=== PATIENT | male | born 1990 | race Caucasian/White ===

== ENCOUNTER 2017-03-02 12:08 | Emergency (ER) | payer BC ==
[2017-03-02 12:25] VITALS: BP 132/73
[2017-03-02] MEDS ORDERED: Meclizine TAB* 12.5 MG PO ONE (12:50)
--- NOTE | 2017-03-02 12:54 | UC ---
Ear Complaint HPI - HPI Summary HPI Summary: 2 weeks total of sinus congestion then ear pain and pressure---awoke this morning with vertigo. no fevers,no other samaniego ill some nausea---sx worsening with movement - History of Current Complaint Chief Complaint: UCGeneralIllness Stated Complaint: SINUS EARS DIZZY VOMITING Time Seen by Provider: 03/02/17 12:30 Hx Obtained From: Patient Onset/Duration: Sudden Onset, Lasting Hours, Still Present Severity Initially: Moderate Severity Currently: Moderate Pain Intensity: 5 Pain Scale Used: 0-10 Numeric Aggravating Factors: Nothing Alleviating Factors: Other (Noted In Comments) - holding still - Allergies/Home Medications Allergies/Adverse Reactions: Allergies Allergy/AdvReac Type Severity Reaction Status Date / Time Amoxicillin [From Augmentin] Allergy Vomiting Verified 03/02/17 12:24 Clavulanic Acid Allergy Vomiting Verified 03/02/17 12:24 [From Augmentin] Home Medications: Home Medications Metoclopramide TAB* [Reglan TAB*] 10 mg PO Q6H PRN 03/02/17 [History Confirmed 03/02/17] Nortriptyline CAP* [Nortriptylline CAP*] 10 mg PO BEDTIME 03/02/17 [History Confirmed 03/02/17] Propranolol TAB* [Inderal TAB*] 10 mg PO BID 03/02/17 [History Confirmed ] SUMAtriptan TAB* [Imitrex TAB*] 25 mg PO SEE INSTRUCTIONS 03/02/17 [History Confirmed 03/02/17] PMH/Surg Hx/FS Hx/Imm Hx Previously Healthy: No Neurological History: Migraine - Surgical History Surgical History: Yes Surgery Procedure, Year, and Place: herniax2, right femur (s/p fracture age 2) - Family History Known Family History: Positive: None Family History: no cardiovascular issues reported in family lineage - Social History Occupation: Employed Full-time Lives: With Family Alcohol Use: None Substance Use Type: None Smoking Status (MU): Never Smoked Tobacco Review of Systems Constitutional: Negative Skin: Negative Eyes: Negative ENT: Negative Respiratory: Negative Cardiovascular: Negative Gastrointestinal: Negative Genitourinary: Negative Motor: Negative Neurovascular: Negative Musculoskeletal: Negative Neurological: Negative, Other - positional vertigo Psychological: Negative All Other Systems Reviewed And Are Negative: Yes Physical Exam Triage Information Reviewed: Yes Appearance: Well-Appearing, No Pain Distress, Well-Nourished Vital Signs: Initial Vital Signs Temp 97.5 F 03/02/17 12:20 Pulse 79 03/02/17 12:20 Resp 16 03/02/17 12:20 BP 132/73 03/02/17 12:20 Pulse Ox 100 03/02/17 12:20 Vital Signs Reviewed: Yes Eye Exam: Normal Eyes: Positive: Conjunctiva Clear, Other: - eomi, perrla ENT Exam: Normal ENT: Positive: Normal ENT inspection, Hearing grossly normal, Pharynx normal, TMs normal. Negative: Nasal congestion, Nasal drainage, Tonsillar swelling, Tonsillar exudate, Trismus, Muffled/hoarse voice Dental Exam: Normal Neck exam: Normal Neck: Positive: Supple, Nontender, No Lymphadenopathy Respiratory Exam: Normal Respiratory: Positive: Chest non-tender, Lungs clear, Normal breath sounds, No respiratory distress, No accessory muscle use Cardiovascular Exam: Normal Cardiovascular: Positive: RRR, No Murmur, Pulses Normal, Brisk Capillary Refill Musculoskeletal Exam: Normal Musculoskeletal: Positive: Strength Intact, ROM Intact, No Edema Neurological Exam: Normal Neurological: Positive: Alert, Muscle Tone Normal Psychological Exam: Normal Psychological: Positive: Normal Response To Family Skin Exam: Normal Ear Complaint Course/Dx - Course Course Of Treatment: meclizine, rest increase fluids, follow with pcp - Differential Dx/Diagnosis Differential Diagnosis/HQI/PQRI: Cerumen Impaction, Foreign Body, Otitis Externa , Otitis Media, Trigeminal Nueralgia, Other - BPV Provider Diagnoses: BPV Discharge - Discharge Plan Condition: Stable Disposition: HOME Prescriptions: Meclizine HCl [Meclizine 25] 25 mg PO TID PRN #30 tab PRN Reason: Vertigo Patient Education Materials: Vertigo (ED), Meclizine (By mouth) Forms: *Work Release Referrals: Nehemias Vivas MD [Primary Care Provider] - 3 Days
== END 2017-03-02 13:03 | disposition home or self-care (01) ==
LOC: UCCORT 12:08
DX: H81.10 Benign paroxysmal vertigo, unspecified ear (principal)
CPT/HCPCS: 99212; A9270-GY; G0463